=== PATIENT | male | born 1995 | race Caucasian/White ===

== ENCOUNTER 2020-07-05 12:17 | Emergency (ER) | payer MEDICAID ==
[~2020-07-05] VITALS: Ht 172.7 cm; Wt 90.7 kg
[2020-07-05 12:42] LABS: *CLARITY,URINE CLEAR (CLEAR); *COLOR,URINE DARK YELLOW (YELLOW); *KETONES,URINE 3+ (NEGATIVE); LEUKOCYTE ESTERASE ,URINE NEGATIVE (NEGATIVE); NITRITE, URINE NEGATIVE (NEGATIVE); PH,URINE 5.5 (5.0-8.0); UGLUCOSE NEGATIVE (NEGATIVE)
[2020-07-05 12:44] LABS: *BILIRUBIN,URIN 2+ (NEGATIVE); *BLOOD, URINE TRACE (NEGATIVE)
--- NOTE | 2020-07-05 12:51 | NUR ---
Patient is cooperative@the moment, pending lab tests' results & disposition
[2020-07-05 12:54] LABS: BASOPHILS # (AUTO) 0.1 K/uL (0.0-8.0); BASOPHILS % (AUTO) 0.9 % (0.0-2.0); EOSINOPHILS % (AUTO) 0.4 % (0.0-7.0); HEMATOCRIT 47.7 % (36.7-47.1); HEMOGLOBIN 16.5 g/dL (12.5-16.3); LYMPHOCYTES # (AUTO) 1.5 K/uL (20.0-40.0); LYMPHOCYTES % (AUTO) 14.4 % (20.5-51.5); MEAN CORPUSCULAR HEMOGLOBIN 30.8 uug (23.8-33.4); MEAN CORPUSCULAR HGB CONC 35 g/dL (32.5-36.3); MEAN CORPUSCULAR VOLUME 89.3 fL (73.0-96.2); MONOCYTES # (AUTO) 0.4 K/uL (2.0-10.0); NEUTROPHILS # (AUTO) 8.6 K/uL (1.8-8.9); NEUTROPHILS % (AUTO) 80.3 % (38.5-71.5); PLATELET COUNT (AUTO) 306 K/uL (152-348); RED BLOOD CELL COUNT(AUTO) 5.34 MIL/uL (4.06-5.63); WHITE BLOOD COUNT (AUTO) 10.7 K/uL (3.6-10.2)
[2020-07-05 12:56] LABS: *AMPHETAMINE, URINE NEGATIVE (NEGATIVE); *BARBITURATE, URINE NEGATIVE (NEGATIVE); *CANNABINOID, URINE POSITIVE (NEGATIVE); *COCCAINE, URINE NEGATIVE (NEGATIVE); *OPIATE, URINE NEGATIVE (NEGATIVE); *PHENCYCLIDINE SCREEN,URINE NEGATIVE (NEGATIVE)
[2020-07-05 13:06] LABS: CARBON DIOXIDE 23 mmol/L (21-32); CHLORIDE 102 mmol/L (98-107); CREATININE 1.4 mg/dL (0.6-1.3); ETHANOL < 3 MG/DL (0-0); GLUCOSE 94 mg/dL (74-106); POTASSIUM 3.7 mmol/L (3.5-5.1); UREA NITROGEN, BLOOD 20 mg/dL (7-18)
[2020-07-05 13:10] LABS: ALANINE AMINOTRANSFERASE 16 U/L (16-63); ALKALINE PHOSPHATASE 99 U/L (50-136); ASPARTATE AMINOTRANSFERASE 21 U/L (15-37); BILIRUBIN,DIRECT 0.3 mg/dL (0.0-0.2); BILIRUBIN,TOTAL 1.8 mg/dL (0.2-1.0); TOTAL PROTEIN, SERUM 8.8 g/dL (6.4-8.2)
[2020-07-05 13:13] LABS: ACETAMINOPHEN < 2.0 ug/mL (10-30)
--- NOTE | 2020-07-05 13:22 | NUR ---
Patient wants to leave the hospital, notified. Patient was informed by and instructed multiple times by ER staff re: psych forest worker is coming to evaluate him. Patient is escalating to anger after several attempts to de-escalate (patient's voice is getting louder, cursing words noted, not following simple commands from ER staff.)
--- NOTE | 2020-07-05 13:32 | NUR ---
Patient is still agitated, hostile, cursing towards staff and wants to leave the hospital. notified & MEAGHAN SHAFER was called. Patient moved to ER bed 2A from ER bed 5 so security technician Rafa can watch both patients (in room 2A & room 2B) for 1:1 observation.
--- NOTE | 2020-07-05 13:40 | NUR ---
Patient noted verbally abusive to staff, verbally threatening to harm ERMD and staff. attempted to redirect and re orient patient, patient noted still aggressive to ERMD and staff. Dr. Cordon aware, new orders received
[2020-07-05 14:38] LABS: RBC,URINE 0-3 /HPF (0-3); WBC,URINE 0-3 /HPF (0-3)
[2020-07-05 14:39] LABS: BACTERIA,URINE NONE SEEN /HPF (NONE SEEN); SQUAMOUS EPITHELIAL CELL,UR FEW /HPF (NONE SEEN)
[2020-07-05] MEDS ORDERED: HALOPERIDOL LACTATE 5 MG/1 ML VIAL IM ONE (14:45)
[2020-07-05] MEDS ORDERED: diphenhydrAMINE 50 MG/1 ML VIAL IM ONE (14:45)
[2020-07-05] MEDS ORDERED: LORAZEPAM 2 MG/1 ML VIAL IM ONE (14:45)
[2020-07-05] MEDS ORDERED: diphenhydrAMINE 50 MG/1 ML VIAL ONE (14:50)
[2020-07-05] MEDS ORDERED: HALOPERIDOL LACTATE 5 MG/1 ML VIAL ONE (14:50)
--- NOTE | 2020-07-05 14:50 | NUR ---
Attempted to redirect patient. Patient still noted with increased agitation.
[2020-07-05] MEDS ORDERED: LORAZEPAM 2 MG/1 ML VIAL ONE ×2 (14:51→16:10)
--- NOTE | 2020-07-05 15:30 | NUR ---
Mayra ROJASW at bedside to evaluate patient
[2020-07-05] MEDS ORDERED: LORAZEPAM 0.5 MG TABLET PO ONE (16:00)
--- NOTE | 2020-07-05 16:30 | NUR ---
Patient calm and cooperative. BLE restraint removed. skin intact. able to move BLE freely without difficulty.
[2020-07-05] MEDS ORDERED: ZIPRASIDONE MESYLATE 20 MG VIAL IM ONE ×2 (16:45→16:53)
--- NOTE | 2020-07-05 16:58 | NUR ---
Patient calm and cooperative. Breathing even and unlabored. NAD at this time
--- NOTE | 2020-07-05 17:00 | NUR ---
Removed BUE. no skin breakdown noted. Patient able to move BUE. cap refill <3 sec.
--- NOTE | 2020-07-05 17:56 | NUR ---
Patient discharged to home in stable condition. Written and verbal after care instructions given. Patient verbalizes understanding of instructions. Stressed follow up or return to ER for worsening s/s. Patient ambulating with steady gait. Denies any HI / SI. NAD noted
[2020-07-05 18:39] VITALS: BP 132/88
== END 2020-07-05 17:56 | disposition home or self-care (01) ==
LOC: ER 12:17
DX: F23 Brief psychotic disorder (principal); F19.10 Other psychoactive substance abuse, uncomplicated; Z82.49 Family history of ischemic heart disease and other diseases of the circulatory system; R45.1 Restlessness and agitation
CPT/HCPCS: 36415; 80048; 80076; 80307 ×2; 80329; 81001; 84484; 85025; 93005; 96372 ×2; 99285; G0480; J1200; J1630; J2060 ×2; 70030-TC; A4663; J3486

== ENCOUNTER 2020-07-12 12:20 | Emergency (ER) | payer MEDICAID ==
[~2020-07-12] VITALS: Ht 177.8 cm; Wt 90.7 kg
--- NOTE | 2020-07-12 12:34 | NUR ---
Patient discharged to home in stable condition. Written and verbal after care instructions given. Patient verbalizes understanding of instructions. Stressed follow up or return to ER for worsening s/s.
== END 2020-07-12 12:38 | disposition home or self-care (01) ==
LOC: ER 12:22
DX: Z76.0 Encounter for issue of repeat prescription (principal); F29 Unspecified psychosis not due to a substance or known physiological condition
CPT/HCPCS: A4663

== ENCOUNTER 2021-05-28 22:55 | Emergency (ER) | payer MEDICAID ==
[~2021-05-28] VITALS: Ht 175.3 cm; Wt 117.9 kg
--- NOTE | 2021-05-28 23:00 | NUR ---
MD Clark in room to do MSE.
[2021-05-28] MEDS ORDERED: NEOMY/BACITRA/POLYMYXIN B OINT UD PACKET TP STA (23:30)
[2021-05-28] MEDS ORDERED: NEOMY/BACITRA/POLYMYXIN B OINT UD PACKET TP ONE (23:39)
[2021-05-28 23:50] VITALS: BP 129/79
--- NOTE | 2021-05-28 23:50 | NUR ---
Patient discharged to home in stable condition. Written and verbal after care instructions given. Patient verbalizes understanding of instructions. Stressed follow up or return to ER for worsening s/s. Patient ambulates with steady gait, V/S stable, and left with all personal belongings.
== END 2021-05-28 23:50 | disposition home or self-care (01) ==
LOC: ER 22:58
DX: L60.0 Ingrowing nail (principal); E66.9 Obesity, unspecified; Z68.38 Body mass index [BMI] 38.0-38.9, adult
CPT/HCPCS: 11765; 99284; J3490

== ENCOUNTER 2021-07-25 00:05 | Emergency (ER) | payer MEDICAID ==
[~2021-07-25] VITALS: Ht 175.3 cm; Wt 117.9 kg
[2021-07-25] MEDS ORDERED: SODIUM BICARBONATE 4.2 % (NEUT) 5 ML VIAL IJ ONE (00:45)
[2021-07-25] MEDS ORDERED: LIDOCAINE HCL 2% 20 ML VIAL IJ ONE (00:45)
[2021-07-25] MEDS ORDERED: HYDR-4209 PO (01:03)
--- NOTE | 2021-07-25 01:45 | NUR ---
MD Ba Malone at bedside to do procedure on patient's L big toe.
[2021-07-25 02:00] VITALS: BP 120/70
--- NOTE | 2021-07-25 02:00 | NUR ---
Patient discharged to home in stable condition. Written and verbal after care instructions given. Patient verbalizes understanding of instructions. Stressed follow up or return to ER for worsening s/s. Patient ambulates with steady gait, V/S stable, given paper Rx, and left with all personal belongings.
== END 2021-07-25 02:00 | disposition home or self-care (01) ==
LOC: ER 00:07
DX: L60.0 Ingrowing nail (principal)
CPT/HCPCS: 11730; 99284; J3490 ×2; A4663